=== PATIENT | female | born 1960 | race Caucasian/White ===

== ENCOUNTER 2024-05-05 07:52 | Emergency (ER) | payer OTHER, SELFPAY ==
[2024-05-05 07:55] VITALS: BP 153/83
--- NOTE | 2024-05-05 09:53 | ED.GENMED ---
History of Present Illness
General
Chief Complaint: Fall
Source: patient and family
Exam Limitations: none
Time Seen by Provider: 05/05/24 09:22
Nursing documentation reviewed up to this point in time: agreed with
History of Present Illness
History of Present Illness:
64-year-old female history of PAF factor V Leiden on Pradaxa prior PE no prior stroke slip and fall this morning on an icy deck struck her head was dazed and confused initially now better she has had a fracture to her left wrist and forearm
previously has some pain in her neck some pain in her upper back no preceding chest pain or shortness of breath she was sent from triage to CAT scan of the head which was unremarkable
Past History
Past History
ED Past Medical History: Arrthythmia, Asthma, [place], Hypothyroidism, Other (Lupus, Pericaridal effusion, Pleural effusion, UTI with sepsis, PVC's) and Other (Factor V Leiden PAF); Negative HTN, Hypercholesterolemia or NIDDM
ED Past Surgical History: (X1) and Orthopedic
Social History
Tobacco: Former smoker
Alcohol: None
Drug: None
Personal:
Living: with family
Employment: Employed
Review of Systems
Review of Systems
All Other Systems: Not applicable
Constitutional: Denies fever or fatigue
EENT: Reports no symptoms
Respiratory: Reports no symptoms
Cardiac: Reports no symptoms; Denies chest pain or syncope
ABD/GI: Reports no symptoms
Musculoskeletal: Reports neck pain and back pain
Neurological: Reports headache
Phy Exam
Physical Exam
Physical Exam:
Physical Exam
General: no apparent distress, not acutely ill
Neck: No tongue bite mild paraspinal tenderness in the lower cervical spine
Heart: s1/s2 regular rate and rhythm, no murmur. equal radial pulses.
Lungs: no acute respiratory distress. clear bilaterally
Abdomen: Soft nontender
Neuro: alert and oriented. no focal neurological deficits
Skin: no rash
Psychiatric: well kept. interactive and cooperative
Extremities: Slight bruising to the volar surface of the left wrist
Course
Orders/Labs/Results
Orders:
Orders
05/05/24 07:[address] [CT Head W/o Iv Contrast] Urgent
Comment:
Reason For Exam: head trauma
05/05/24 09:41
CR Chest - 2 Views Urgent
Comment:
Reason For Exam: fall
Forearm, Left 2 View [CR Forearm - Left 2 View] Urgent
Comment:
Reason For Exam: fall
05/05/24 09:42
Acetaminophen [Tylenol] 650 mg PO NOW STA
CR Cervical Spine 2 or 3 Vw Urgent
Comment:
Reason For Exam: fall
05/05/24 09:47
Metaxalone [Skelaxin] 800 mg PO NOW STA
Vital Signs
Initial and Last Documented VS:
Initial Vital Signs
Temp Resp BP Pulse Ox
98 F 16 153/83 97
05/05/24 07:55 05/05/24 07:55 05/05/24 07:55 05/05/24 07:55
Last Documented Vital Signs
Temp Resp BP Pulse Ox
98 F 16 153/83 97
05/05/24 07:55 05/05/24 07:55 05/05/24 07:55 05/05/24 07:55
MDM/Problems Addressed
Differential Diagnosis Includes:
Intracerebral hemorrhage slip and fall cervical spine injury contusion wrist contusion does not appear to be syncope
MDM/Problems Addressed:
Fall head trauma
Chronic conditions affecting care:
Factor V Leiden, PAF anticoagulated
Acute Exacerbation and/or Progression of Chronic Illness:
Factor V Leiden PAF
*Radiology
Radiology exam reviewed: radiology read reviewed
*Pulse Oximetry
Patient hypoxic: no
*Auto Fleet Manager Interpretation
Rate: Auto Fleet Manager- N/A
*Critical Care Note
Total Time (30-74mins, 75-104mins- exclusive of procedures): Not Applicable
Update Note
Update Note:
Decision making Snyder Coma Score 15 she is anticoagulation nontoxic needed, CT of the head noted, does have some paraspinal neck pain will check 3 view C-spine, also chest x-ray forearm x-ray, shared decision making with patient and her daughter
who is an RN and myself due to her complicated past medical history prior embolic events believe the risk benefits support continuing her Pradaxa uninterrupted despite her head trauma, and in the setting of a CT scan with no fracture or hemorrhage,
patient was clearly instructed to return to the ER if worsening headache nausea vomiting seizure etc. the possibility for delayed bleeding
ED Attending Note
-
Portions of this chart may have been created with voice recognition software.� Occasional wrong word or��sound alike� substitutions may have occurred due to the inherent limitations of voice recognition software.
Discharge Plan
Departure
Patient Disposition: Home (Routine Discharge)
Date of Disposition: 05/05/24
Time of Disposition: 10:52
Patient with high blood pressure during this ER visit?: No
Condition: Good
Covid-19: Not Applicable
Discharge Problem:
Head injury
Instructions: Concussion, Adult (DC)
Prescriptions:
No Action
cephalexin 500 MG capsule
500 mg PO BID Qty: 20 0RF
Referrals:
Juan Iraheta MD [Family Provider] -
Activity Restrictions/Additional Instructions:
Rest, Tylenol as needed for pain
Continue your medications as prescribed, return to the ER if headaches, nausea vomiting, confusion seizures or any other concerns
Interventions
Interventions:
*Risk Screen - Suicide Last Done: 05/05/24 07:57
*Neglect/Abuse Screening Last Done: 05/05/24 07:57
Discharge Date and Time
Print Language: [id number]
[2024-05-05] MEDS: SKELAXIN 800 MG PO (09:59)
[2024-05-05] MEDS: TYLENOL 650 MG PO (09:59)
[2024-05-05 11:07] VITALS: BP 112/62
== END 2024-05-05 11:14 | disposition home or self-care (01) ==
LOC: EMR 07:52
PROVIDERS: EMERGENCY PHYSICIAN Emergency Medicine; FAMILY PHYSICIAN Internal Medicine
DX: S09.90XA Unspecified injury of head, initial encounter (principal); W00.0XXA Fall on same level due to ice and snow, initial encounter; I48.0 Paroxysmal atrial fibrillation; D68.51 Activated protein C resistance; Z79.01 Long term (current) use of anticoagulants; Z86.711 Personal history of pulmonary embolism; Z87.891 Personal history of nicotine dependence; E03.9 Hypothyroidism, unspecified
CPT/HCPCS: 99284; 70450; 71046; 72040; 73090